=== PATIENT | female | born 1980 | race American Indian/Alaskan Native ===

== ENCOUNTER 2020-09-05 09:17 | Inpatient (IN) | payer SELFPAY ==
[2020-09-05] MEDS ORDERED: MINERAL OIL 30 ML ORAL LIQD PO PRN (11:12)
[2020-09-05] MEDS ORDERED: AMPICILLIN/NS 2 GM/100 ML 2 GM/100 ML BAG IV ONE ×2 (11:12→18:28)
[2020-09-05] MEDS ORDERED: ePHEDrine SULFATE 50 MG/1 ML INJ IV PRN (11:12)
[2020-09-05] MEDS ORDERED: miSOPROStol 25 MCG TAB VG PRN (11:12)
[2020-09-05] MEDS ORDERED: BUTORPHANOL 2 MG/1 ML INJ IV PRN (11:12)
[2020-09-05] MEDS ORDERED: LIDOCAINE (2%) 20 MG/1 ML VIAL 20 ML MDV INFILTRATI ONE (11:12)
[2020-09-05] MEDS ORDERED: TERBUTALINE 1 MG/1 ML INJ SUB-Q PRN (11:12)
[2020-09-05] MEDS ORDERED: LACTATED RINGERS 1,000 ML IV SCH (11:15)
[2020-09-05] MEDS ORDERED: OXYTOCIN DRIP 30 UNITS/500 ML BAG IV SCH (12:00)
[2020-09-05 12:07] LABS: Hematocrit 37.5 % (30.3-42.9); Hemoglobin 12.5 gm/dl (10.1-14.3); Mean Corpuscular HGB Conc 33 % (30-34); Mean Corpuscular Volume 82 fl (79-97); Platelet Count 137 K/mm3 (140-440); Red Blood Count 4.57 M/mm3 (3.65-5.03); Red Cell Distribution Width 15.5 % (13.2-15.2)
--- NOTE | 2020-09-05 13:54 | History and Physical Report ---
History of Present Illness Date of examination: 09/05/20 Date of admission: 09/05/20 09:18 Chief complaint: IOL History of present illness: 40-year old -0-0-3 at 39+6 weeks who presents for induction of labor. The patient's course is complicated by advanced maternal age and late presentation of care at 34 weeks gestational age. She is GBS positive. Past History Past Medical History: no pertinent history Past Surgical History: no surgical history Social history: - Obstetrical History Expected Date of Delivery: 09/06/20 Actual Gestation: 39 Week(s) 6 Day(s) : 4 Para: 3 Hx # Term Pregnancies: 3 Number of Pregnancies: 0 Spontaneous Abortions: 0 Induced : 0 Number of Living Children: 3 Medications and Allergies Allergies Allergy/AdvReac Type Severity Reaction Status Date / Time No Known Allergies Allergy Unverified 09/05/20 10:49 Home Medications Medication Instructions Recorded Confirmed Last Taken Type Pnv,Calcium 72/Iron/Folic Acid 1 each PO DAILY 09/05/20 09/05/20 08/26/20 20:00 History [ Plus Tablet] Active Meds: Active Medications Butorphanol Tartrate (Butorphanol 2 Mg/1 Ml Inj) 2 mg IV Q2H PRN PRN Reason: Pain , Severe (7-10) Ephedrine Sulfate (Ephedrine Sulfate 50 Mg/1 Ml Inj) 10 mg IV Q2M PRN PRN Reason: Hypotension Lactated Ringer's (Lactated Ringers) 1,000 mls @ 125 mls/hr IV DIRECT [facility] Oxytocin/Sodium Chloride (Pitocin/Ns 30 Unit/500ml) 30 units in 500 mls @ 40 mls/hr IV TITR [facility]; Protocol Ampicillin Sodium (Ampicillin/Ns 1 Gm/50 Ml) 1 gm in 50 mls @ 100 mls/hr IV Q4H [facility]; Protocol Mineral Oil (Mineral Oil 30 Ml Oral Liqd) 30 ml PO QHS PRN PRN Reason: Constipation Misoprostol (Misoprostol 25 Mcg Tab) 25 mcg VG Q4HR PRN PRN Reason: IOL Last Admin: 09/05/20 11:58 Dose: 25 mcg Documented by: Terbutaline Sulfate (Terbutaline 1 Mg/1 Ml Inj) 0.25 mg SUB-Q ONCE PRN PRN Reason: Hyperstimulation/Hypertonicity Review of Systems All systems: negative Genitourinary: no vaginal bleeding, no leakage of fluid - Vital Signs Vital signs: Vital Signs Pulse BP 129 H 122/87 09/05/20 09:59 09/05/20 09:59 Temp Pulse Resp BP Pulse Ox 98.8 F 104 H 20 103/65 100 09/05/20 13:10 09/05/20 13:35 09/05/20 13:10 09/05/20 12:07 09/05/20 13:35 - Physical Exam Breasts: Positive: deferred Cardiovascular: Regular rate Lungs: Positive: Clear to auscultation Abdomen: Positive: normal appearance Results Result Diagrams: 09/05/20 11:30 Abnormal lab results 09/05/20 Range/Units 11:30 MCH 27 L (28-32) pg RDW 15.5 H (13.2-15.2) % Plt Count 137 L (140-440) K/mm3 All other labs normal. Assessment and Plan - Patient Problems (1) Advanced maternal age (AMA) in Current Visit: Yes Status: Acute Plan to address problem: Admit for induction of labor (2) Insufficient care Current Visit: Yes Status: Acute
[2020-09-05] MEDS ORDERED: AMPICILLIN/NS 1 GM/50 ML 1 GM/50 ML BAG IV SCH (16:00)
[2020-09-06] MEDS ORDERED: LIDOCAINE (2%) 20 MG/1 ML VIAL 20 ML MDV INFILTRATI ONE (01:06)
[2020-09-06] MEDS ORDERED: miSOPROStol 200 MCG TAB ONE (01:07)
[2020-09-06] MEDS ORDERED: LIDOCAINE MPF (2%) 20 MG/1 ML VIAL 5 ML ONE (01:07)
[2020-09-06] MEDS ORDERED: diphenhydrAMINE 25 MG CAP PO PRN (01:43)
[2020-09-06] MEDS ORDERED: LANOLIN/ZINC/DIMETHICONE (LANSINOH) 7 GM TP PRN (01:43)
[2020-09-06] MEDS ORDERED: WITCH HAZEL/ GLYCERIN PAD TP PRN (01:43)
[2020-09-06] MEDS ORDERED: PROMETHAZINE 25 MG TAB PO PRN (01:43)
[2020-09-06] MEDS ORDERED: ACETAMINOPHEN 325 MG TAB PO PRN (01:43)
[2020-09-06] MEDS ORDERED: MAGNESIUM HYDROXIDE (MOM) ORAL LIQD UDC PO PRN (01:43)
[2020-09-06] MEDS ORDERED: HYDROcodone/ACETAMINOPHEN 5-325 MG TAB PO PRN (01:43)
[2020-09-06] MEDS ORDERED: ONDANSETRON 4 MG/2 ML INJ IV PRN (01:43)
[2020-09-06] MEDS ORDERED: PROMETHAZINE 25 MG RECT SUPP PR PRN (01:43)
--- NOTE | 2020-09-06 01:43 | Procedure Note ---
OB Delivery Note - Delivery Date of Delivery: 09/06/20 Surgeon: PEPPER AGUILA Estimated blood loss: other (350ml) - Vaginal Delivery presentation: vertex Delivery position: OA Delivery induction: misoprostol Delivery monitor: external FHT, external uterine Route of delivery: Delivery placenta: spontaneous Delivery cord: true knot, 3 umbilical vessels Episiotomy: none Delivery laceration: none Anesthesia: none Delivery comments: The patient progressed to complete complete +2. Amniotomy was performed with evidence of clear fluid. The patient pushed to deliver a live-born female with Apgars of 8 and 9 weight 6 pounds 13 ounces. After delivery of the head the shoulders delivered without difficulty. The infant was bulb suctioned and the cord was clamped and cut. The infant was placed on the patient's abdomen. The placenta was delivered spontaneously intact with a three-vessel cord. The umbilical cord had evidence of a true knot. No lacerations were noted. The patient required uterine massage for uterine atony. Estimated blood loss of 350 mL. - Infant A at 1 minute: 8 at 5 minutes: 9 Gender: Female (Weight 6 pounds 13 ounces)
[2020-09-06] MEDS: IBUPROFEN 600 MG TAB PO SCH ×3 (05:13→17:24)
[2020-09-06 18:17] LABS: Hematocrit 34.5 % (30.3-42.9); Hemoglobin 11.2 gm/dl (10.1-14.3)
[2020-09-07] MEDS: IBUPROFEN 600 MG TAB PO SCH ×2 (06:46→12:44)
--- NOTE | 2020-09-07 08:27 | Progress Note ---
Objective - Vital Signs Latest vital signs: Vital Signs Temp Pulse Resp BP BP Pulse Ox 09/07/20 01:18 97.6 F 95 H 20 104/63 100 09/06/20 20:10 97.9 F 94 H 20 106/72 100 09/06/20 16:59 98.0 F 16 105/71 09/06/20 12:08 97.6 F 80 15 122/74 100 Intake and Output 09/06/20 09/07/20 09/07/20 23:59 07:59 15:59 Intake Total 480 480 Balance 480 480 Intake: Oral 480 480 Other: Total, Intake Amount 240 240 # Voids Void 1 1 # Bowel Movements 1
--- NOTE | 2020-09-07 08:29 | Discharge Summary ---
Providers - Providers Date of Admission: 09/05/20 09:18 Date of discharge: 09/07/20 (1500) Attending physician: PEPPER AGUILA Primary care physician: PEPPER AGUILA Hospitalization Reason for admission: induction of labor Delivery: Episiotomy: none Laceration: none Incision: normal Other procedures: none complications: none Discharge diagnosis: IUP at term delivered baby: female Hospital course: 40-year old -0-0-3 at 39+6 weeks who presents for induction of labor. The patient's course is complicated by advanced maternal age and late presentation of care at 34 weeks gestational age. She is GBS positive. Condition at discharge: Good Disposition: DC-01 TO HOME OR SELFCARE - Discharge Diagnoses (1) Status post normal vaginal delivery Status: Acute Plan - Discharge Medications Prescriptions: Ibuprofen [Motrin 600 MG tab] 600 mg PO Q6H 14 Days #56 tablet - Provider Discharge Summary Activity: routine, no sex for 6 weeks, no heavy lifting 4 weeks, no strenuous exercise Diet: routine Instructions: routine Additional instructions: [] Smoking cessation referral if applicable(refer to patient education folder for contact #) [] Refer to [facility] Booklet Call your doctor immediately for: * Fever > 100.5 * Heavy vaginal bleeding ( >1 pad per hour) * Severe persistent headache * Shortness of breath * Reddened, hot, painful area to leg or breast - Follow up plan Follow up: ARACELI MERCADO MD [Staff Physician] - 6 Weeks
[2020-09-07 10:52] VITALS: BP 105/73
== END 2020-09-07 14:20 | disposition home or self-care (01) | DRG 807 ==
LOC: TRG 09:17 → LD 09:17 → TRG 11:49 → OB 09-06 03:36
PROVIDERS: ADMIT Obstetrics & Gynecology; ATTEND Obstetrics & Gynecology
PROC: 10E0XZZ Delivery of Products of Conception, External Approach (ICD-10-PCS; principal; 2020-09-06)
PROC: 3E033VJ Introduction of Other Hormone into Peripheral Vein, Percutaneous Approach (ICD-10-PCS; 2020-09-06)
DX: O99.824 Streptococcus B carrier state complicating childbirth (principal); Z37.0 Single live birth; Z3A.39 39 weeks gestation of pregnancy; Z20.822 Contact with and (suspected) exposure to COVID-19
CPT/HCPCS: 36415; 85014; 85018; 85027; 86592; 86850; 86900; 86901; 96360; G0378; J0290; J0595; J2590; J7120; U0003